=== PATIENT | female | born 1995 | race African-American/Black ===

== ENCOUNTER 2019-12-24 19:43 | Emergency (ER) | payer OTHER ==
[~2019-12-24] VITALS: Ht 172.7 cm; Wt 74.6 kg
[2019-12-24 19:56] VITALS: BP 121/83
--- NOTE | 2019-12-24 20:03 | PHYS DOC ---
General Adult EDM: Chief Complaint: EARACHE/EAR PAIN HPI: HPI: "..My ear and throat been hurting since Wednesday.. it worse to day.;. I ve had some drainage.. and now it hurt to move my right ear.. the right side of my throat is sore..." Patient is a 24 year old female who presents with above hx and complaints of right ear and pharyngitis pain starting Wednesday. Patient has not been swimming. No history of trauma. Does have findings of old ear puncture grande for earrings. Patient has had some mild discharge from the canal. TM did have a small amount of fluid but no erythema. Canal was inflamed. Patient does have injection right posterior pillars. There is a few shotty nodes and right angle of neck and mandible. Patient denies any specific ill contacts. . Patient normally follows at [facility]. Patient is 13 weeks . Has planned cervical cerclage because of a history of prior episode of miscarriage due to incompetent cervix. No history immunosuppression. No history of recent travel outside [facility]. Review of Systems: Review of Systems: Constitutional: Denies fever or chills Eyes: Denies change in visual acuity HENT: Rt. ear pain and Rt. sore throat Respiratory: Denies cough or shortness of breath Cardiovascular: Denies chest pain or edema GI: Denies abdominal pain, nausea, vomiting, bloody stools or diarrhea : Denies dysuria Musculoskeletal: Denies back pain or joint pain Integument: Denies rash Neurologic: Denies headache, focal weakness or sensory changes Endocrine: Denies polyuria or polydipsia Lymphatic: Denies swollen glands Psychiatric: Denies depression or anxiety Heart Score: Risk Factors: Risk Factors: DM, Current or recent (<one month) smoker, HTN, HLP, family hist ory of CAD, obesity. Risk Scores: Score 0 - 3: 2.5% MACE over next 6 weeks - Discharge Home Score 4 - 6: 20.3% MACE over next 6 weeks - Admit for Clinical Observation Score 7 - 10: 72.7% MACE over next 6 weeks - Early Invasive Strategies Family History: Family History: Noncontributory Current Medications: Current Meds: See nursing for home medications Allergies: Allergies: History of an allergy to naproxen Physical Exam: PE: Constitutional: Well developed, well nourished, mild distress, non-toxic appearance. [] HENT: Normocephalic, atraumatic, bilateral external ears normal, right ear canal erythema, right TM has small amount of fluid, oropharynx moist, injected pharynx on right no oral exudates, nose normal. [] Eyes: PERRLA, EOMI, conjunctiva normal, no discharge. [] Neck: Normal range of motion, tenderness angle right mandible noted,, supple, no stridor. [] Cardiovascular:Heart rate regular rhythm, no murmur [] Lungs & Thorax: Bilateral breath sounds equal at apex on auscultation [] Abdomen: Bowel sounds normal, soft, no tenderness, no masses, no pulsatile masses. Gravid Skin: Warm, dry, no erythema, no rash. [] Back: No tenderness, no CVA tenderness. [] Extremities: No tenderness, no cyanosis, no clubbing, ROM intact, no edema. [] Neurologic: Alert and oriented X 3, normal motor function, normal sensory function, no focal deficits noted. [] DTRs +2. Psychologic: Affect anxious, judgement normal, mood normal. [] EKG: EKG: [] Radiology/Procedures: Radiology/Procedures: [] Course & Med Decision Making: Course & Med Decision Making Pertinent Labs and Imaging studies reviewed. (See chart for details) Patient use Cortisporin eardrops in right ear 4 times a day. Patient may take Tylenol for pain. Patient to use Keflex 500 mg 3 times a day. Patient follow- up primary care. Patient return if any concerns. Impression; 1. Rt. Ear Pain- Ext. Nettie 2. Pharyngitis 3. Gravid 2, Mis x 1 incontinent cervix, currently 13 weeks intrauterine 4. Plan for surgery on December 28 for incontinence cervix [] Dragon Disclaimer: Dragon Disclaimer: This electronic medical record was generated, in whole or in part, using a voice recognition dictation system. Departure Departure: Disposition: 01 HOME/RESIDENCE PRIOR TO ADM Condition: STABLE Referrals: PCP,NO (PCP) Scripts Cephalexin (KEFLEX) 500 Mg Capsule 500 MG PO TID for pharyngitis, ear pain for 7 Days, BOTTLE Prov: GUNJAN ALVARADO MD 12/24/19 Nitesh Disclaimer This chart was dictated in whole or in part using Voice Recognition software in a busy, high-work load, and often noisy Emergency Department environment. It may contain unintended and wholly unrecognized errors or omissions. GUNJAN ALVARADO MD December 24, 2019 20:03
[2019-12-24] MEDS ORDERED: CEPH-264 PO (20:12)
[2019-12-24] MEDS ORDERED: CEPHALEXIN 250 MG CAPSULE PO ONE (20:30)
[2019-12-24] MEDS ORDERED: NEOMYCIN/POLYMYXIN/HC OTIC SUSPENSION 10ML BOTTLE. AD ONE (21:00)
== END 2019-12-24 20:24 | disposition home or self-care (01) ==
LOC: ER 19:43
DX: O26.891 Other specified pregnancy related conditions, first trimester (principal); H92.01 Otalgia, right ear; J02.9 Acute pharyngitis, unspecified; Z3A.13 13 weeks gestation of pregnancy; Z88.8 Allergy status to other drugs, medicaments and biological substances
CPT/HCPCS: 99283

== ENCOUNTER 2020-04-09 23:39 | Emergency (ER) | payer OTHER ==
[~2020-04-09] VITALS: Ht 172.7 cm; Wt 74.6 kg
[~2020-04-09 23:39] MED LIST: CEPH-264 PO
--- NOTE | 2020-04-10 00:11 | PHYS DOC ---
Past History Past Medical History: No Pertinent History Past Surgical History: Tonsillectomy Alcohol Use: None General Adult EDM: Chief Complaint: LOWER EXT PAIN HPI: HPI: The history was obtained from the patient. Patient is a 24-year-old female estimated 22 weeks with no reported PMH who presents with a chief complaint of bilateral leg swelling. Patient states she is had gradual onset of bilateral leg swelling throughout the . She states that she has had slight skin discoloration tracking along the venous system to her proximal left tibia region over the past several months. She states some of the areas seem to have darkened over the past week. She states her LICENSED STAFF MFT was going to refer her to a vein specialist however she has not received that referral yet. She states since she has not received that referral she was instructed report to the emergency department. Denies chest pain or shortness of breath. Denies syncope. Nuys trauma or falls. Notes very mild cramping pain to the legs bilaterally. No other complaints. Review of Systems: Review of Systems: Constitutional: Denies fever or chills Eyes: Denies change in visual acuity HENT: Denies nasal congestion or sore throat Respiratory: Denies cough or shortness of breath Cardiovascular: Positive for leg swelling GI: Denies abdominal pain, nausea, vomiting, bloody stools or diarrhea : Denies dysuria Musculoskeletal: Denies back pain or joint pain Integument: Denies rash Neurologic: Denies headache, focal weakness or sensory changes Endocrine: Denies polyuria or polydipsia Lymphatic: Denies swollen glands Psychiatric: Denies depression or anxiety Heart Score: Risk Factors: Risk Factors: DM, Current or recent (<one month) smoker, HTN, HLP, family history of CAD, obesity. Risk Scores: Score 0 - 3: 2.5% MACE over next 6 weeks - Discharge Home Score 4 - 6: 20.3% MACE over next 6 weeks - Admit for Clinical Observation Score 7 - 10: 72.7% MACE over next 6 weeks - Early Invasive Strategies Allergies: Allergies: Allergies Coded Allergies Type Severity Reaction Last Updated Verified naproxen Allergy Mild Rash 12/24/19 Yes Physical Exam: PE: Constitutional: Well developed, well nourished, no acute distress, non-toxic appearance. [] HENT: Normocephalic, atraumatic, bilateral external ears normal, oropharynx moist, no oral exudates, nose normal. [] Eyes: PERRLA, EOMI, conjunctiva normal, no discharge. [] Neck: Normal range of motion, no tenderness, supple, no stridor. [] Cardiovascular:Heart rate regular rhythm, no murmur [] Lungs & Thorax: Bilateral breath sounds clear to auscultation [] Abdomen: Bowel sounds normal, soft, no tenderness, no masses, no pulsatile masses. [] Skin: Warm, dry, no erythema, no rash. [] Back: No tenderness, no CVA tenderness. [] Extremities: No appreciable edema palpated bilaterally. Hyperpigmentation noted in a reticular pattern following what appears to be the venous system to the anterior proximal left tibia region. Negative Homans sign bilaterally. Neurologic: Alert and oriented X 3, normal motor function, normal sensory function, no focal deficits noted. [] Psychologic: Affect normal, judgement normal, mood normal. [] Current Patient Data: Labs: Laboratory Tests Test 04/10/20 00:55 White Blood Count 12.3 x10^3/uL Red Blood Count 3.28 x10^6/uL Hemoglobin 9.6 g/dL Hematocrit 28.7 % Mean Corpuscular Volume 88 fL Mean Corpuscular Hemoglobin 29 pg Mean Corpuscular Hemoglobin Concent 33 g/dL Red Cell Distribution Width 16.2 % Platelet Count 303 x10^3/uL Neutrophils (%) (Auto) 76 % Lymphocytes (%) (Auto) 14 % Monocytes (%) (Auto) 8 % Eosinophils (%) (Auto) 2 % Basophils (%) (Auto) 1 % Neutrophils # (Auto) 9.3 x10^3uL Lymphocytes # (Auto) 1.7 x10^3/uL Monocytes # (Auto) 1.0 x10^3/uL Eosinophils # (Auto) 0.2 x10^3/uL Basophils # (Auto) 0.1 x10^3/uL EKG: EKG: [] Radiology/Procedures: Radiology/Procedures: [address] [address] IMAGING REPORT Signed PATIENT: SHENG MURRAY ACCOUNT: [id number] : 1995 LOCATION: ER AGE: 24 SEX: F EXAM STATUS: REG ER ORD. PHYSICIAN: BLAKE CROUCH DO REASON: leg swelling PROCEDURE: VENOUS LOWER EXT BILATERAL Examination: Bilateral Lower Extremity Venous Doppler Ultrasound History: Bilateral lower extremity swelling Comparison: None Procedure: Carrion scale, color flow 2D and spectal waveform analysis images are obtained with and without compression in the area of the common femoral vein, superficial femoral vein - femoral vein junction, main femoral vein (superficial femoral vein) and popliteal vein. Veins of the proximal calf are also imaged. Findings: There is normal duplex flow, color flow and compressibility of all visualized vein segments. No evidence of deep venous thrombus is present. Impression: No evidence of DVT in the bilateral lower extremity venous system. Electronically signed by: Ishan Dash MD (04/10/2020 2:45 AM) [id number] DICTATED AND SIGNED BY: ISHAN DASH MD DATE: 04/10/20 0245 CC: PAUL SEPULVEDA DO; BLAKE CROUCH DO ~ [] Course & Med Decision Making: Course & Med Decision Making Pertinent Labs and Imaging studies reviewed. (See chart for details) [] Patient is a well-appearing 24-year-old female who presents with chief complaint of bilateral leg swelling associate with . Initial vital signs unremarkable. CBC was obtained given the skin changes. Platelets normal. She does have a hemoglobin of 9.5. However she denies any blood loss or symptoms consistent with anemia including chest pain or shortness of breath. Denies any abdominal pain therefore ultrasound imaging of the abdomen will be deferred. Lower extremity DVT study was negative bilaterally. At this time the exact cause of her skin hyperpigmentation is unclear. No signs of infection. Antibiotics to be deferred. She was instructed to follow-up with her primary care physician and [facility]AFF [facility]FT in the next 2 to 3 days. Return precautions discussed and understood. Stable for discharge home. Dragon Disclaimer: Nitesh Disclaimer: This electronic medical record was generated, in whole or in part, using a voice recognition dictation system. Departure Departure: Impression: Primary Impression: Leg swelling Disposition: HOME/RESIDENCE PRIOR TO ADM Condition: STABLE Referrals: PAUL SEPULVEDA DO (PCP) Patient Instructions: Edema Additional Instructions: Please follow-up with your LICENSED STAFF MFT and primary care physician in the next 2 to 3 days. Justification of Admission: Justification of Admission: Justification of Admission Dx: N/A BLAKE CROUCH DO Apr 10, 2020 00:10
[2020-04-10 01:29] LABS: BASO # 0.1 x10^3/uL (0.0-0.2); BASO % 1 % (0-3); EOS # 0.2 x10^3/uL (0.0-0.7); EOS % 2 % (0-3); HEMATOCRIT 28.7 % (36.0-47.0); HEMOGLOBIN 9.6 g/dL (12.0-15.5); LYMPH # 1.7 x10^3/uL (1.0-4.8); LYMPH % 14 % (24-48); MEAN CORPUSCULAR HEMOGLOBIN 29 pg (25-35); MEAN CORPUSCULAR HGB CONC 33 g/dL (31-37); MEAN CORPUSCULAR VOLUME 88 fL (79-100); MONO % 8 % (0-9); NEUT # 9.3 x10^3uL (1.8-7.7); NEUT % 76 % (31-73); PLATELET COUNT 303 x10^3/uL (140-400); RED BLOOD COUNT 3.28 x10^6/uL (3.50-5.40); RED CELL DISTRIBUTION WIDTH 16.2 % (11.5-14.5); WHITE BLOOD COUNT 12.3 x10^3/uL (4.0-11.0)
[2020-04-10 02:05] VITALS: BP 133/87
--- NOTE | 2020-04-10 02:48 | RAD ---
Examination: Bilateral Lower Extremity Venous Doppler Ultrasound History: Bilateral lower extremity swelling Comparison: None Procedure: Carrion scale, color flow 2D and spectal waveform analysis images are obtained with and without compression in the area of the common femoral vein, superficial femoral vein - femoral vein junction, main femoral vein (superficial femoral vein) and popliteal vein. Veins of the proximal calf are also imaged. Findings: There is normal duplex flow, color flow and compressibility of all visualized vein segments. No evidence of deep venous thrombus is present. Impression: No evidence of DVT in the bilateral lower extremity venous system. Electronically signed by: Ishan Dash MD (04/10/2020 2:45 AM) [id number]
== END 2020-04-10 02:05 | disposition home or self-care (01) ==
LOC: ER 23:39
DX: O12.02 Gestational edema, second trimester (principal); Z3A.22 22 weeks gestation of pregnancy; Z88.8 Allergy status to other drugs, medicaments and biological substances
CPT/HCPCS: 36415; 85025; 93970; 99284-25